=== PATIENT | male | born 1950 | race Caucasian/White ===

== ENCOUNTER 2016-11-11 11:58 | Outpatient (CLI) | payer MEDICARE, OTHER | END 2016-11-11 11:59 | disposition home or self-care (01) | DX: R06.00 Dyspnea, unspecified (principal); F17.220 Nicotine dependence, chewing tobacco, uncomplicated ==

== ENCOUNTER 2016-11-14 12:44 | Outpatient (CLI) | payer MEDICARE, OTHER | END 2016-11-14 12:45 | disposition home or self-care (01) | DX: I35.0 Nonrheumatic aortic (valve) stenosis (principal) ==

== ENCOUNTER 2019-02-16 08:55 | Outpatient (CLI) | payer MEDICARE, OTHER | END 2019-02-16 08:56 | disposition home or self-care (01) | LOC: DI 08:55 | PROVIDERS: ATTEND Registered Nurse | DX: Z09 Encounter for follow-up examination after completed treatment for conditions other than malignant neoplasm (principal); Z95.3 Presence of xenogenic heart valve; I77.810 Thoracic aortic ectasia | CPT/HCPCS: 93306 ==

== ENCOUNTER 2020-05-03 12:49 | Outpatient (CLI) | payer MEDICARE ==
--- NOTE | 2020-05-03 17:21 | Ultrasound Report ---
PROCEDURE: Carotid Doppler Complete INDICATIONS: BILAT CAROTID ARTERY STENOSIS TECHNIQUE: Color and pulse Doppler interrogation was performed of both carotid systems, with image documentation and velocity measurements. COMPARISON: None. FINDINGS: Similar carotid ultrasound not available for review. Right side: Common carotid artery peak systolic velocity: 37 cm/sec. Internal carotid artery peak systolic velocity: 151 cm/sec. Internal carotid artery end diastolic velocity: 28 cm/sec. External carotid artery peak systolic velocity: 60 cm/sec. ICA/CCA peak systolic ratio: 4.1 . Guadalupe scale imaging description: Prominent calcific and soft plaque Percent internal carotid artery stenosis: 50-69% stenosis within the proximal right internal carotid artery. . Vertebral artery: Flow direction is antegrade. Left side: Common carotid artery peak systolic velocity: 69 cm/sec. Internal carotid artery peak systolic velocity: 115 cm/sec. Internal carotid artery end diastolic velocity: 42 cm/sec. External carotid artery peak systolic velocity: Greater than 287 cm/sec. ICA/CCA peak systolic ratio: 1.7 . Guadalupe scale imaging description: Moderate calcific and soft plaque Percent internal carotid artery stenosis: Less than 50% stenosis within the proximal left internal c arotid artery. . Vertebral artery: Flow direction is antegrade. IMPRESSION: Right greater than left carotid stenosis, 50-69% projected to be present on the right and less than 5 0% is present on the left. Quality of visualization is somewhat limited by dense atherosclerotic calc ification involving the right proximal internal carotid artery. The estimate of stenosis included in the report of the imaging study was calculated using the NASCET method Reviewed by: Rufino Castorena MD on 05/03/2020 5:19 PM PDT Approved by: Rufino Castorena MD on 05/03/2020 5:19 PM PDT Station ID: [id number]
== END 2020-05-03 12:50 | disposition home or self-care (01) ==
LOC: DI 12:49
PROVIDERS: ATTEND Nurse Practitioner Family
DX: I65.23 Occlusion and stenosis of bilateral carotid arteries (principal)
CPT/HCPCS: 93880

== ENCOUNTER 2020-07-11 09:19 | Outpatient (CLI) | payer MEDICARE ==
--- NOTE | 2020-07-11 10:16 | XRAY Report ---
PROCEDURE: Chest 2 View X-Ray INDICATIONS: HX OF AORTIC VALVE REPLACEMENT TECHNIQUE: 2 view(s) of the chest. COMPARISON: 11/11/2016. FINDINGS: Surgical changes and devices: Multiple median sternotomy wires are intact. Aortic valve replacement i s noted. Lungs and pleura: No pleural effusions or pneumothorax. Lungs are clear. Mediastinum: Mediastinal contours are normal. Heart size is normal. Bones and chest wall: No suspicious bony abnormalities. Soft tissues appear unremarkable. IMPRESSION: Chest without acute cardiopulmonary abnormalities. Reviewed by: Dexter Jeffers MD on 07/11/2020 10:14 AM PST Approved by: Dexter Jeffers MD on 07/11/2020 10:14 AM PST Station ID: [id number]
== END 2020-07-11 09:20 | disposition home or self-care (01) ==
LOC: DI 09:19
PROVIDERS: ATTEND Registered Nurse
DX: Z95.4 Presence of other heart-valve replacement (principal)
CPT/HCPCS: 71046; 93306

== ENCOUNTER 2022-01-09 08:23 | Outpatient (CLI) | payer MEDICARE ==
[2022-01-09 14:22] LABS: BASOPHILS # (AUTO) 0.1 10^3/uL (0.0-0.1); BASOPHILS % (AUTO) 1.3 %; EOSINOPHILS # (AUTO) 0.3 10^3/uL (0.0-0.7); EOSINOPHILS % (AUTO) 2.6 %; HCT - HEMATOCRIT 45.2 % (42.0-52.0); HGB - HEMOGLOBIN 14.9 g/dL (14.0-18.0); LYMPHOCYTES # (AUTO) 3.1 10^3/uL (1.5-3.5); LYMPHOCYTES % (AUTO) 31.7 %; MEAN CORPUSCULAR HEMOGLOBIN 30.5 pg (27.0-31.0); MEAN CORPUSCULAR VOLUME 92.4 fL (80.0-94.0); MEAN PLATELET VOLUME 10.6 fL (7.4-11.4); MONOCYTES # (AUTO) 0.9 10^3/uL (0.0-1.0); MONOCYTES % (AUTO) 8.9 %; NEUTROPHILS # (AUTO) 5.4 10^3/uL (1.5-6.6); NEUTROPHILS % (AUTO) 55.2 %; PLT - PLATELET COUNT 198 10^3/uL (130-450); RED BLOOD COUNT 4.89 10^6/uL (4.70-6.10); RED CELL DISTRIBUTION WIDTH 15.9 % (12.0-15.0); WHITE BLOOD COUNT 9.9 x10^3/uL (4.8-10.8)
[2022-01-09 14:55] LABS: CHOL/HDL RATIO 3.5 (<5.0); CHOLESTEROL 171 mg/dL; HDL CHOLESTEROL 49 mg/dL; LDL CHOLESTEROL,CALCULATED 104 mg/dL; LDL/HDL RATIO 2.1 (<3.6); TRIGLYCERIDES 92 mg/dL; VALPROIC ACID (DEPAKOTE) 63.6 ug/mL; VLDL CHOLESTEROL 18 mg/dL
== END 2022-01-09 08:24 | disposition home or self-care (01) ==
LOC: LAB.S 08:23
PROVIDERS: ATTEND Registered Nurse
DX: D72.820 Lymphocytosis (symptomatic) (principal); F31.9 Bipolar disorder, unspecified; I65.23 Occlusion and stenosis of bilateral carotid arteries
CPT/HCPCS: 36415; 80061; 80164; 83721; 85025

== ENCOUNTER 2023-05-01 08:20 | Outpatient (CLI) | payer MEDICARE ==
--- NOTE | 2023-05-01 12:51 | XRAY Report ---
PROCEDURE: Chest 2 View X-Ray INDICATIONS: DYSPNEA ON EXERTION TECHNIQUE: 2 views of the chest were acquired. COMPARISON: Chest radiographs 07/11/2020 FINDINGS: Surgical changes and devices: Sternotomy wires, mediastinal clips, and prosthetic aortic valve are n oted. The superiormost cerclage wire is fractured, which is new when compared to the prior exam. Lungs and pleura: No pleural effusions or pneumothorax. Lungs are mildly hyperexpanded and clear. Mediastinum: Mediastinal contours appear normal. Heart size is normal. Bones and chest wall: No suspicious bony lesions. Overlying soft tissues appear unremarkable. IMPRESSION: Mildly hyperexpanded lungs can be seen in the setting of COPD. No acute cardiopulmonary abnormality. Reviewed by: Christopher Newby MD on 05/01/2023 12:50 PM PDT Approved by: Christopher Newby MD on 05/01/2023 12:50 PM PDT Station ID: [id number]
== END 2023-05-01 08:21 | disposition home or self-care (01) ==
LOC: DI.S 08:20
PROVIDERS: ATTEND Registered Nurse
DX: R06.09 Other forms of dyspnea (principal)

== ENCOUNTER 2023-05-26 13:01 | Outpatient (CLI) | payer MEDICARE ==
--- NOTE | 2023-05-26 14:51 | XRAY Report ---
PROCEDURE: Lumbar Spine 2 View INDICATIONS: ACUTE LOW BACK PAIN TECHNIQUE: 3 views of the lumbar spine were acquired. COMPARISON: None. FINDINGS: Bones: 5 [id number] vertebrae are present. Pedicular screw not fixation spanning L4, L5, and S 1. Status post discectomy and interbody fusion at L5-S1. There is severe grade 3 anterolisthesis of L 5-S1 measuring 2.8 cm. Severe disc space narrowing at the remaining visualized levels with endplate s clerosis and degenerative changes. No vertebral body compression fractures. No suspicious bony lesio ns. Degenerative changes of the lumbar spine. Postoperative changes of total right hip replacement. Degenerative changes of the left hip. Soft tissues: Overlying bowel gas pattern is normal. No suspicious soft tissue calcifications. IMPRESSION: 1. Multilevel degenerative changes of the lumbar spine. 2. Postoperative changes of fixation at L4, L5, and S1 with 2.8 cm anterolisthesis of L5-S1. No prior imaging is available for comparison in order to ascertain the acuity of this finding.. Reviewed by: Roque Beyer on 05/26/2023 2:50 PM PDT Approved by: Roque Beyer on 05/26/2023 2:50 PM PDT Station ID: [id number]
== END 2023-05-26 13:02 | disposition home or self-care (01) ==
LOC: DI.S 13:01
PROVIDERS: ATTEND Registered Nurse
DX: M47.816 Spondylosis without myelopathy or radiculopathy, lumbar region (principal); M47.817 Spondylosis without myelopathy or radiculopathy, lumbosacral region